=== PATIENT | female | born 1955 | race Caucasian/White ===

== ENCOUNTER 2018-12-17 18:04 | Emergency (ER) | payer BC, OTHER ==
--- NOTE | 2018-12-17 18:31 | EDM.PDOC ---
ED HPI GENERAL MEDICAL PROBLEM - General Chief Complaint: Upper Extremity Injury/Pain Stated Complaint: BROKE WRIST Time Seen by Provider: 12/17/18 18:15 Source of Information: Reports: Patient History Limitations: Reports: No Limitations - History of Present Illness Onset: Today Severity: Moderate Improves with: Reports: None Worsens with: Reports: None Right Wrist Pain Score (Numeric/FACES): 8 - Related Data Allergies Allergy/AdvReac Type Severity Reaction Status Date / Time No Known Allergies Allergy Verified 12/17/18 18:35 Home Meds: Home Meds Levothyroxine Sodium 1 tab PO DAILY 12/17/18 [History] Olmesartan Medoxomil 1 tab PO DAILY 12/17/18 [History] Simvastatin 1 tab PO DAILY 12/17/18 [History] amLODIPine Besylate [Amlodipine Besylate] 1 tab PO DAILY 12/17/18 [History] Review of Systems - Review of Systems Review Of Systems: ROS reveals no pertinent complaints other than HPI. ED EXAM, GENERAL - Physical Exam Exam: See Below Exam Limited By: No Limitations General Appearance: Alert, WD/WN, No Apparent Distress Head: Atraumatic, Normocephalic Neck: Normal Inspection, Supple, Full Range of Motion Respiratory/Chest: No Respiratory Distress, Lungs Clear, Normal Breath Sounds Cardiovascular: Regular Rate, Rhythm Peripheral Pulses: 4+: Radial (L), Radial (R) GI/Abdominal: Normal Bowel Sounds, Soft, Non-Tender Back Exam: Full Range of Motion Extremities: Other (right wrist, obvious deformity; cms intact; cap refill less than 3 seconds) Neurological: Alert, Oriented, CN II-XII Intact, Normal Gait Psychiatric: Normal Affect, Normal Mood Skin Exam: Warm, Dry, Intact Course - Vital Signs Last Recorded V/S: Last Vital Signs Temp 99.1 F 12/17/18 18:30 Pulse 127 H 12/17/18 18:30 Resp 20 12/17/18 18:30 BP 133/85 12/17/18 18:30 Pulse Ox 96 12/17/18 18:30 - Orders/Labs/Meds Orders: Active Orders 24 hr Category Date Time Status Peripheral IV Care [RC] . DIRECTED Care 12/17/18 18:33 Active Peripheral IV Insertion Adult [OM.PC] Stat Oth 12/17/18 18:32 Ordered Meds: Medications Discontinued Medications Generic Name Dose Route Start Last Admin Trade Name Chris PRN Reason Stop Dose Admin Morphine Sulfate 5 mg 12/17/18 18:32 12/17/18 19:51 Morphine IVPUSH 12/17/18 18:33 Not Given ONETIME ONE Sodium Chloride 10 ml 12/17/18 18:32 Saline Flush FLUSH ASDIRECTED PRN Keep Vein Open - Re-Assessments/Exams Free Text/Narrative Re-Assessment/Exam: 12/17/18 19:44 Spoke with TAHIRA Kenyon from [facility] in ; she has arranged for 08 surgery tomorrow. Departure - Departure Time of Disposition: 20:00 Disposition: Home, Self-Care 01 Condition: Good Clinical Impression: Fracture of radius and ulna, Distal radial fracture, Ulnar fracture - Discharge Information *PRESCRIPTION DRUG MONITORING PROGRAM REVIEWED*: Not Applicable *COPY OF PRESCRIPTION DRUG MONITORING REPORT IN PATIENT MIL: Not Applicable Instructions: Cast or Splint Care, Adult, [id number] Referrals: Jovany Vega Sr, MD [Primary Care Provider] - Forms: ED Department Discharge ED Communication - ED Communication Date/Time Date: 12/17/18 (1929) - Discussed Case With (1) Discussed Case With (1): Outpatient Provider (TAHIRA Kenyon ortho, [facility]; reviewed xrays with patient. Agree's to take patient for surgery with Dr. Gallagher tomorrow morning.) - Problem List & Annotations (1) Fracture of radius and ulna SNOMED Code(s): 33441888 Code(s): S52.90XA - UNSP FRACTURE OF UNSP FOREARM, INIT FOR CLOS FX; S52.209A - UNSP FRACTURE OF SHAFT OF UNSP ULNA, INIT FOR CLOS FX Status: Acute Priority: Medium Qualifiers: Encounter type: initial encounter Fracture type: closed Laterality: right Qualified Code(s): S52.91XA - Unspecified fracture of right forearm, initial encounter for closed fracture; S52.201A - Unspecified fracture of shaft of right ulna, initial encounter for closed fracture - My Orders Last 24 Hours: My Active Orders 12/17/18 18:32 Peripheral IV Insertion Adult [OM.PC] Stat 12/17/18 18:33 Peripheral IV Care [RC] . DIRECTED - Assessment/Plan Last 24 Hours: My Active Orders 12/17/18 18:32 Peripheral IV Insertion Adult [OM.PC] Stat 12/17/18 18:33 Peripheral IV Care [RC] . DIRECTED
[2018-12-17] MEDS ORDERED: Sodium Chloride 0.9% 10 ML Syringe FLUSH PRN (18:32)
[2018-12-17] MEDS ORDERED: Morphine 10 MG/ML Syringe IVPUSH ONE (18:32)
--- NOTE | 2018-12-17 19:39 | CRLCR ---
INDICATION: Deformity and pain following fall TECHNIQUE: Three views right wrist COMPARISON: None FINDINGS: Bones: Impacted intra-articular distal radius fracture. Probable ulnar styloid process fracture. Joint spaces: Unremarkable. Soft tissues: Unremarkable. IMPRESSION: Impacted intra-articular distal radius fracture. Probable ulnar styloid process fracture. Dictated by Jorge A Cherry MD @ 12/17/2018 7:39:05 PM Dictated by: Jorge A Cherry MD @ 12/17/2018 19:39:11 (Electronically Signed)
== END 2018-12-17 20:16 | disposition home or self-care (01) ==
LOC: JP.ED 18:04
DX: S52.571A Other intraarticular fracture of lower end of right radius, initial encounter for closed fracture (principal); S52.201A Unspecified fracture of shaft of right ulna, initial encounter for closed fracture; Z79.899 Other long term (current) drug therapy; W01.0XXA Fall on same level from slipping, tripping and stumbling without subsequent striking against object, initial encounter
CPT/HCPCS: 73110-RT; 99283-25